=== PATIENT | male | born 1965 | race Hispanic/Latino ===

== ENCOUNTER 2016-12-02 18:06 | Emergency (ER) | payer OTHER ==
[~2016-12-02] VITALS: Ht 167.6 cm; Wt 73.2 kg
[~2016-12-02 18:06] MED LIST: ASPIRIN325 MG PO; COUMADIN5 MG PO; FLONASE16 G1 BOTH NARES; KENALOG,ARISTOC80 GM TP; LOVENOX80 MG/0.8 SC; MEDROL DOSEPAK4 MG PO; NAPROXEN SODIU220 MG PO; NASONEX17 GM BOTH NARES; OMEPRAZOLE40 M1 PO; PRINIVIL20 MG PO; SIMVASTATIN40 MG PO; TAMIFLU75 MG PO; TOPROL XL100 MG PO; TYLENOL W/COD1 COMBO PO; VOLTAREN 1% GE100 GM TP; ZETIA10 MG PO
[2016-12-02] MEDS ORDERED: NAPROSYN500 MG PO (19:48)
[2016-12-02] MEDS ORDERED: NORCO 5/3251 TABLET PO (19:48)
[2016-12-02 19:57] VITALS: BP 125/67
== END 2016-12-02 19:58 | disposition home or self-care (01) ==
LOC: EME 18:06 → EXP 19:33
DX: M54.16 Radiculopathy, lumbar region (principal); I10 Essential (primary) hypertension; E78.5 Hyperlipidemia, unspecified; Z86.718 Personal history of other venous thrombosis and embolism; Z79.82 Long term (current) use of aspirin
CPT/HCPCS: 99281; 99283